=== PATIENT | male | born 1965 | race Caucasian/White ===

== ENCOUNTER → 2019-11-02 | Day surgery (SDC) | payer BC ==
[2019-10-30 15:21] VITALS: BMI 30.1
[~2019-11-02] MED LIST: LACTATED RINGERS 1,000 ML IV SCH; LIDOCAINE 1% 20 ML VIAL (10MG/ML) FOR IV START INTRADERMA PRN; MIDAZOLAM 2 MG/2 ML VIAL ONE; PROPOFOL 10 MG/ML 20 ML VIAL IV ONE; fentaNYL (PF) 50 MCG/ML 2 ML AMP ONE
[2019-11-02 12:41] VITALS: TEMP 98.5
--- NOTE | 2019-11-02 13:23 | P.PCN ---
Date of Procedure: 11/02/19 Procedure(s) Performed: BRIEF HISTORY: Patient is a 54-year-old pleasant white male scheduled for an elective colonoscopy as a part of value should of prior history of colon polyps. Last colonoscopy was in 5 years ago. PROCEDURE PERFORMED: Colonoscopy with biopsy. PREOPERATIVE DIAGNOSIS: History of colon polyps. IV sedation per Anesthesia. PROCEDURE: After informed consent was obtained, the patient, was brought into the endoscopy unit. IV sedation was administered by Anesthesia under continuous monitoring. Digital rectal examination was normal. Initially the Olympus CF-160 flexible video colonoscope was then inserted in the rectum, gradually advanced into the cecum without any difficulty. Careful examination was performed as the scope was gradually being withdrawn. Ileocecal valve and the appendiceal orifice were visualized and appeared normal. Prep was excellent. The cecum there was a 3 mm sessile polyp that was removed by cold biopsy. Mucosa of the cecum, ascending colon, transverse colon, descending colon, sigmoid colon, and rectum appeared normal. Retroflexion was performed in the rectum and no lesions were seen. The patient tolerated the procedure well. IMPRESSION: 3 mm sessile cecal polyp status post removal by cold biopsy Rest of the colon appeared normal RECOMMENDATIONS: Findings of this examination were discussed with the patient as well as his family. Was advised to follow with the biopsy results. If the biopsy shows an adenoma he can have a repeat colonoscopy in 5 years
[2019-11-02 13:40] VITALS: RESP 17
[2019-11-02 13:41] VITALS: BP 146/79; PULSE 73
== END ==
LOC: ORWHC2ENDO 11:50
PROVIDERS: ATTEND Internal Medicine Gastroenterology
DX: D12.0 Benign neoplasm of cecum (principal); E78.5 Hyperlipidemia, unspecified; K21.9 Gastro-esophageal reflux disease without esophagitis; Z86.010 Personal history of colon polyps; Z88.1 Allergy status to other antibiotic agents; Z79.899 Other long term (current) drug therapy; Z79.82 Long term (current) use of aspirin; Z87.898 Personal history of other specified conditions
CPT/HCPCS: 88305; 45380; J2250; J3010; J2704

== ENCOUNTER 2022-06-19 06:18 | Emergency (ER) | payer BC ==
[2022-06-19] MEDS ORDERED: KETOROLAC 15 MG/ML 1 ML VIAL IVP STA (06:34)
[2022-06-19] MEDS ORDERED: SODIUM CHLORIDE 0.9% 1,000 ML IV STA (06:34)
[2022-06-19] MEDS ORDERED: ONDANSETRON 4 MG/2 ML VIAL IVP STA (06:34)
--- NOTE | 2022-06-19 06:36 | ED ---
General Adult HPI - General Chief complaint: Abdominal Pain Stated complaint: LT flank and groin pain Time Seen by Provider: 06/19/22 06:27 Source: patient Mode of arrival: ambulatory Limitations: no limitations - History of Present Illness Initial comments: 56-year-old male with a past medical history of GERD presents to the emergency room for left sided low back pain. Patient woke up around 4 hours ago with pain radiating from his low back around to his abdomen and groin. States he tried to take Tylenol but it didn't help. Patient admits he feels like he needs to urinate but can only go a little bit. Denies blood in the urine. Denies histor y of kidney stones. Denies numbness or tingling in the left leg. Currently rating pain at an 8 out of 10. Patient has no other complaints at this time including shortness of breath, chest pain, nausea or vomiting, headache, or visual changes. - Related Data Home Medications Medication Instructions Recorded Confirmed Aspirin [Adult Low Dose Aspirin EC] 81 mg PO DAILY 10/30/19 10/30/19 Lansoprazole [Prevacid] 30 mg PO BID PRN 10/30/19 10/30/19 Simvastatin [Zocor] 40 mg PO HS 10/30/19 10/30/19 Previous Rx's Medication Instructions Recorded HYDROcodone/APAP 5-325MG [[place] 1 tab PO Q6HR PRN #10 tab 06/19/22 5-325] Ondansetron Odt [Zofran Odt] 4 mg PO Q8HR PRN #14 tab 06/19/22 Tamsulosin [Flomax] 0.4 mg PO DAILY #14 cap 06/19/22 Allergies Allergy/AdvReac Type Severity Reaction Status Date / Time cephalexin [From Keflex] Allergy Rash/Hives Verified 06/19/22 06:26 levofloxacin [From Levaquin] Allergy Rash/Hives Verified 06/19/22 06:26 Review of Systems ROS Statement: Those systems with pertinent positive or pertinent negative responses have been documented in the HPI. ROS Other: All systems not noted in ROS Statement are negative. Past Medical History Past Medical History: GERD/Reflux, Hyperlipidemia, Osteoarthritis (OA) Additional Past Medical History / Comment(s): elevated BP-no rx, History of Any Multi-Drug Resistant Organisms: None Reported Past Surgical History: Hernia Repair Additional Past Surgical History / Comment(s): spermatocele removed from testicle Past Anesthesia/Blood Transfusion Reactions: Motion Sickness, Postoperative Nausea & Vomiting (PONV) Past Psychological History: No Psychological Hx Reported Past Alcohol Use History: Occasional Past Drug Use History: None Reported - Past Family History Mother Family Medical History: No Reported History General Exam Limitations: no limitations General appearance: alert (mild distress secondary to pain) Head exam: Present: atraumatic Eye exam: Present: normal appearance, PERRL, EOMI. Absent: scleral icterus, co njunctival injection ENT exam: Present: normal exam, mucous membranes moist Neck exam: Present: normal inspection, full ROM. Absent: tenderness Respiratory exam: Present: normal lung sounds bilaterally. Absent: respiratory distress, wheezes Cardiovascular Exam: Present: regular rate, normal rhythm GI/Abdominal exam: Present: soft. Absent: distended, tenderness, guarding Course Vital Signs 06/19/22 06/19/22 06:22 07:55 Temperature 98.1 F Pulse Rate 62 91 Respiratory 22 18 Rate Blood Pressure 188/86 136/76 O2 Sat by Pulse 99 99 Oximetry Medical Decision Making - Medical Decision Making Vitals are stable. Patient is well-appearing. CBC unremarkable. CMP does show mild bump in creatinine at 1.4. He was given a liter of fluids. CT abdomen and pelvis shows suspected punctate calcification at the left UVJ with some nonobstructing renal stones not excluded bilaterally. Mild left hydronephrosis and hydroureter. Patient's pain is currently controlled with Toradol. Discussed with patient that he should follow up with his primary care doctor within 1 week to retest his kidney function. He should also follow up with urology. If symptoms worsen he will return here. He was sent home with pain medication. I discussed this case with attending Dr. Smyth who agrees with this assessment and treatment plan. - Lab Data Result diagrams: 06/19/22 06:48 06/19/22 06:48 Lab Results 06/19/22 06/19/22 06/19/22 Range/Units 06:48 06:48 06:48 WBC 11.2 H (3.8-10.6) k/uL RBC 4.89 (4.30-5.90) m/uL Hgb 15.7 (13.0-17.5) gm/dL Hct 48.4 (39.0-53.0) % MCV 98.9 (80.0-100.0) fL MCH 32.1 (25.0-35.0) pg MCHC 32.5 (31.0-37.0) g/dL RDW 12.9 (11.5-15.5) % Plt Count 261 (150-450) k/uL MPV 8.8 Neutrophils % 88 % Lymphocytes % 8 % Monocytes % 3 % Eosinophils % 1 % Basophils % 0 % Neutrophils # 9.8 H (1.3-7.7) k/uL Lymphocytes # 0.9 L (1.0-4.8) k/uL Monocytes # 0.3 (0-1.0) k/uL Eosinophils # 0.1 (0-0.7) k/uL Basophils # 0.0 (0-0.2) k/uL Sodium 138 (137-145) mmol/L Potassium 4.8 (3.5-5.1) mmol/L Chloride 108 H (98-107) mmol/L Carbon Dioxide 21 L (22-30) mmol/L Anion Gap 9 mmol/L BUN 17 (9-20) mg/dL Creatinine 1.40 H (0.66-1.25) mg/dL Est GFR (CKD-EPI)AfAm 64 (>60 ml/min/1.73 sqM) Est GFR (CKD-EPI)NonAf 55 (>60 ml/min/1.73 sqM) Glucose 138 H (74-99) mg/dL Calcium 9.5 (8.4-10.2) mg/dL Total Bilirubin 0.8 (0.2-1.3) mg/dL AST 32 (17-59) U/L ALT 27 (4-49) U/L Alkaline Phosphatase 105 (38-126) U/L Total Protein 7.2 (6.3-8.2) g/dL Albumin 4.7 (3.5-5.0) g/dL Amylase 71 (30-110) U/L Lipase 91 (23-300) U/L Urine Color Yellow Urine Appearance Clear (Clear) Urine pH 5.5 (5.0-8.0) Ur Specific Jesse 1.032 (1.001-1.035) Urine Protein 1+ H (Negative) Urine Glucose (UA) Negative (Negative) Urine Ketones Negative (Negative) Urine Blood Large H (Negative) Urine Nitrite Negative (Negative) Urine Bilirubin Negative (Negative) Urine Urobilinogen <2.0 (<2.0) mg/dL Ur Leukocyte Esterase Negative (Negative) Urine RBC 47 H (0-5) /hpf Urine WBC 2 (0-5) /hpf Ur Squamous Epith Cells <1 (0-4) /hpf Urine Bacteria Rare H (None) /hpf Urine Mucus Many H (None) /hpf Disposition Clinical Impression: Kidney stone on left side, Acquired cyst of kidney Disposition: HOME SELF-CARE Condition: Good Instructions (If sedation given, give patient instructions): Kidney Stones (ED) Additional Instructions: Please take Tylenol for pain. If pain is severe take [place]. Take Zofran as needed for nausea. Take Flomax daily. Follow-up with your doctor within the week to repeat her kidney function. Follow-up with urology at the next available appointment. If you have worsening symptoms return to the emergency room. Prescriptions: Tamsulosin [Flomax] 0.4 mg PO DAILY #14 cap HYDROcodone/APAP 5-325MG [[place] 5-325] 1 tab PO Q6HR PRN #10 tab PRN Reason: Pain Ondansetron Odt [Zofran Odt] 4 mg PO Q8HR PRN #14 tab PRN Reason: Nausea Is patient prescribed a controlled substance at d/c from ED?: No Referrals: Jose Pope DO [Primary Care Provider] - 1-2 days Neil Yoon MD [STAFF PHYSICIAN] - 1-2 days Time of Disposition: 08:06
--- NOTE | 2022-06-19 07:03 | XR ---
EXAMINATION TYPE: XR KUB DATE OF EXAM: 06/19/2022 COMPARISON: NONE HISTORY: Left flank pain TECHNIQUE: 2 views upright FINDINGS: There is no sign of intestinal obstruction or pneumoperitoneum. Fecal pattern is normal. No sign of a mass. Lung bases are clear. No calculus seen over the kidneys and ureters. IMPRESSION: Nonacute abdomen.
[2022-06-19 07:14] LABS: Basophils % (A) 0 %; Eosinophils # (A) 0.1 k/uL (0-0.7); Eosinophils % (A) 1 %; HCT 48.4 % (39.0-53.0); HGB 15.7 gm/dL (13.0-17.5); Lymphocytes # (A) 0.9 k/uL (1.0-4.8); Lymphocytes % (A) 8 %; MCH 32.1 pg (25.0-35.0); MCHC 32.5 g/dL (31.0-37.0); MCV 98.9 fL (80.0-100.0); Mean Platelet Volume 8.8; Monocytes # (A) 0.3 k/uL (0-1.0); Monocytes % (A) 3 %; Neutrophils # (A) 9.8 k/uL (1.3-7.7); Neutrophils % (A) 88 %; Platelet Count 261 k/uL (150-450); RBC 4.89 m/uL (4.30-5.90); RDW 12.9 % (11.5-15.5); WBC 11.2 k/uL (3.8-10.6)
[2022-06-19 07:21] LABS: Appearance,Urine Clear (Clear); Bacteria,Urine Rare /hpf; Bilirubin,Urine Negative (Negative); Blood,Urine Large (Negative); Color,Urine Yellow; Glucose,Urine (UA) Negative (Negative); Ketones,Urine Negative (Negative); Leukocyte Esterase,Urine Negative (Negative); Mucus,Urine Many /hpf; Nitrite,Urine Negative (Negative); PH, Urine 5.5 (5.0-8.0); Protein,Urine 1+ (Negative); RBC,Urine 47 /hpf (0-5); Specific Gravity,Urine 1.032 (1.001-1.035); Squamous Epithelial Cell,Urine <1 /hpf (0-4); Urobilinogen,Urine <2.0 mg/dL (<2.0); WBC,Urine 2 /hpf (0-5)
--- NOTE | 2022-06-19 07:39 | CT ---
EXAMINATION TYPE: CT abdomen pelvis wo con DATE OF EXAM: 06/19/2022 COMPARISON: None INDICATION: Left sided flank pain. DLP: 892.1 mGycm, Automated exposure control for dose reduction was used. CONTRAST: 0 mL of Isovue 300. Study performed without Oral Contrast TECHNIQUE: Axial images were obtained from above the diaphragm to the pubic rami in the axial plane a t 5 mm thick sections. Reconstructed images are reviewed on the computer in the coronal plane. FINDINGS: Limited CT sections are obtained the lung bases. The lung bases are clear. CT ABDOMEN: Liver: Normal Spleen: Normal Pancreas: Normal Adrenal glands: The adrenal glands are normal. Gallbladder: Normal Kidneys: No masses are evident. There may be some minimal left hydronephrosis. Minimal left hydrouret er is present. Punctate density may be at the left ureterovesical junction. Series 201 image 133. Pun ctate densities not excluded within the proximal right ureter, series 201 image 66. Significant hydro ureter or hydronephrosis on the right however is not evident. An additional punctate density may be w ithin the proximal left ureter without obstruction. Series 201 image 66. There is a 2.0 cm cyst measu ring 3 Hounsfield units in the medial mid right kidney Aorta: Normal Inferior vena cava: Normal. CT PELVIS: Loops of bowel within the abdomen and pelvis are normal. Descending Colon is decompressed. The silvino dy is without oral contrast limiting bowel evaluation. Appendix: Normal as visualized. Urinary bladder: Decompressed with limited evaluation. Punctate calcifications may be at the left ure terovesical junction. Genitourinary structures: Prostate is normal Osseous structures: No suspicious lytic or sclerotic lesions. IMPRESSIONS: 1. Suspected punctate calcification at the left ureteral vesicle junction. Couple of proximal puncta te nonobstructing renal stones are not excluded within the proximal ureters bilaterally. 2. Mild left hydronephrosis and hydroureter
[2022-06-19 07:48] LABS: Albumin 4.7 g/dL (3.5-5.0); Calcium 9.5 mg/dL (8.4-10.2); Total Bilirubin 0.8 mg/dL (0.2-1.3); Total Protein 7.2 g/dL (6.3-8.2)
[2022-06-19 07:54] LABS: Potassium 4.8 mmol/L (3.5-5.1)
[2022-06-19 07:59] VITALS: RESP 18
[2022-06-19 08:34] VITALS: BP 132/74; PULSE 71; TEMP 98.5
== END 2022-06-19 08:34 | disposition home or self-care (01) ==
LOC: EC 06:18
DX: N28.1 Cyst of kidney, acquired (principal); N13.2 Hydronephrosis with renal and ureteral calculous obstruction; K21.9 Gastro-esophageal reflux disease without esophagitis; E78.5 Hyperlipidemia, unspecified; Z88.1 Allergy status to other antibiotic agents; Z79.82 Long term (current) use of aspirin; Z79.899 Other long term (current) drug therapy
CPT/HCPCS: 36415; 80053; 82150; 83690; 85025; 81001; 74018; 74176; 99284; 96374; 96375; 96361; J2405; J1885